=== PATIENT | male | born 1990 | race Two or more races ===

== ENCOUNTER 2016-12-06 20:30 | Emergency (ER) | payer SELFPAY ==
[~2016-12-06] VITALS: Ht 180.3 cm; Wt 63.0 kg
[2016-12-06] MEDS ORDERED: HYDROcodone/APAP 5/325 TABLET ONE (20:59)
[2016-12-06] MEDS ORDERED: HYDROcodone/APAP 5/325 TABLET PO ONE (21:00)
[2016-12-06 21:25] VITALS: BP 129/84
== END 2016-12-06 21:27 | disposition home or self-care (01) ==
LOC: ED 21:00
DX: K04.7 Periapical abscess without sinus (principal); K02.9 Dental caries, unspecified
CPT/HCPCS: 41800

== ENCOUNTER 2017-01-29 01:30 | Emergency (ER) | payer SELFPAY ==
[~2017-01-29] VITALS: Ht 180.3 cm; Wt 61.9 kg
[2017-01-29] MEDS ORDERED: KETOROLAC 30 MG/1 ML ONE (01:58)
[2017-01-29] MEDS ORDERED: ONDANSETRON 2MG/ML, 2ML ONE (01:58)
[2017-01-29] MEDS ORDERED: ONDANSETRON 2MG/ML, 2ML IVPush ONE (02:00)
[2017-01-29] MEDS ORDERED: SODIUM CHLORIDE 0.9% 1,000ML IVBOLUS ONE (02:00)
[2017-01-29] MEDS ORDERED: KETOROLAC 30 MG/1 ML IVPush ONE (02:00)
[2017-01-29 02:10] LABS: HEMATOCRIT 48.8 % (39.2-51.8); HEMOGLOBIN 16.5 g/dL (13.7-18.0)
[2017-01-29 02:22] LABS: ASPARTATE AMINO TRANSFERASE 17 U/L (15-37); BLOOD UREA NITROGEN 11 mg/dL (7-18)
[2017-01-29 02:34] LABS: DAU SCREEN DISCLAIMER
[2017-01-29 03:24] VITALS: BP 127/69
== END 2017-01-29 03:28 | disposition home or self-care (01) ==
LOC: ED 03:21
DX: K29.20 Alcoholic gastritis without bleeding (principal); F14.10 Cocaine abuse, uncomplicated; F15.10 Other stimulant abuse, uncomplicated
CPT/HCPCS: 36415; 80053; 80307; 81003; 83690; 85025; 96361; 96374; 96375; 99284; J1885; J2405; J7030; G0479

== ENCOUNTER 2017-04-21 15:44 | Emergency (ER) | payer OTHER ==
[~2017-04-21] VITALS: Ht 180.3 cm; Wt 63.3 kg
[2017-04-21 15:46] VITALS: BP 135/91
[2017-04-21] MEDS ORDERED: BENZOCAINE AEROSOL SPRAY 20%, 60ML ONE (16:06)
== END 2017-04-21 16:24 | disposition home or self-care (01) ==
LOC: ED 16:15
DX: K04.7 Periapical abscess without sinus (principal); K02.9 Dental caries, unspecified
CPT/HCPCS: 41800; 99283

== ENCOUNTER 2017-06-29 07:21 | Emergency (ER) | payer SELFPAY ==
[~2017-06-29] VITALS: Ht 180.3 cm; Wt 62.6 kg
[2017-06-29] MEDS ORDERED: LIDOCAINE-MPF 1%, 5ML ONE (07:43)
[2017-06-29] MEDS ORDERED: DIPH,PERTUSS(ACELL),TET VAC/PF 0.5 ML IM-VACC ONE ×4 (07:43→08:00)
[2017-06-29 07:55] VITALS: BP 150/97
[2017-06-29] MEDS ORDERED: LIDOCAINE-MPF 1%, 5ML INFIL ONE (08:00)
== END 2017-06-29 08:26 | disposition home or self-care (01) ==
LOC: ED 07:42
DX: K04.7 Periapical abscess without sinus (principal); K02.9 Dental caries, unspecified
CPT/HCPCS: 41800; 90471; 90715

== ENCOUNTER 2017-08-29 07:37 | Emergency (ER) | payer SELFPAY ==
[~2017-08-29] VITALS: Ht 177.8 cm; Wt 58.0 kg
[2017-08-29] MEDS ORDERED: ONDANSETRON 2MG/ML, 2ML IVPush ONE (09:00)
[2017-08-29] MEDS ORDERED: SODIUM CHLORIDE 0.9% 1,000ML IVBOLUS ONE (09:00)
[2017-08-29] MEDS ORDERED: FAMOTIDINE 20 MG/2 ML IVP ONE (09:00)
[2017-08-29] MEDS ORDERED: FAMOTIDINE 20 MG/2 ML ONE (09:03)
[2017-08-29] MEDS ORDERED: ONDANSETRON 2MG/ML, 2ML ONE (09:03)
[2017-08-29 09:16] LABS: BASOPHILS # (AUTO) 0.01 x10^3/uL (0-0.1); BASOPHILS % (AUTO) 1 % (0-1); EOSINOPHILS # (AUTO) 0.03 x10^3/uL (0-0.4); EOSINOPHILS % (AUTO) 1 % (1-7); LYMPHOCYTES # (AUTO) 1.19 x10^3/uL (1-3.4); LYMPHOCYTES % (AUTO) 38 % (22-44); MD NO; MEAN CORPUSCULAR HEMOGLOBIN 30.9 pg (27.5-34.5); MEAN CORPUSCULAR HGB CONC 34.5 g/dL (33.2-36.2); MEAN CORPUSCULAR VOLUME 89.6 fL (81-97); MEAN PLATELET VOLUME 8.5 fL (7.4-10.4); MONOCYTES # (AUTO) 0.27 x10^3/uL (0.2-0.8); MONOCYTES % (AUTO) 9 % (2-9); NEUTROPHILS # (AUTO) 1.62 x10^3/uL (1.8-6.8); NEUTROPHILS % (AUTO) 52 % (42-75); PLATELET COUNT 199 x10^3/uL (130-400); RED BLOOD COUNT 5.25 x10^6/uL (4.38-5.82); RED CELL DISTRIBUTION WIDTH 12.8 % (9.4-14.8)
[2017-08-29 09:26] LABS: ALANINE AMINOTRANSFERASE 22 U/L (12-78); ALBUMIN 4.6 g/dL (3.4-5.0); ANION GAP 7 mmol/L (5-15); CHLORIDE 107 mmol/L (98-107); CREATININE 1.05 mg/dL (0.7-1.3)
[2017-08-29 09:28] LABS: ALKALINE PHOSPHATASE 90 U/L (45-117); BILIRUBIN,TOTAL 1.3 mg/dL (0.2-1.0); TOTAL PROTEIN 8.3 g/dL (6.4-8.2)
[2017-08-29 09:47] VITALS: BP 118/78
[2017-08-29 09:55] LABS: MICROSCOPIC NOT IND
[2017-08-29] MEDS ORDERED: SODIUM CHLORIDE 0.9% 1,000 ML IV ONE (10:00)
[2017-08-29 10:04] LABS: CULTURE INDICATED? NO
== END 2017-08-29 10:27 | disposition home or self-care (01) ==
LOC: ED 10:21
DX: K52.9 Noninfective gastroenteritis and colitis, unspecified (principal)
CPT/HCPCS: 36415; 74021; 80053; 81003; 83690; 85025; 96361; 96374; 96375; 99285; J2405; J7030; S0028